=== PATIENT | female | born 1955 | race Caucasian/White ===

== ENCOUNTER → 2016-06-21 | Outpatient (CLI) | payer OTHER ==
[2016-06-21 11:14] LABS: HEMOGLOBIN 12.9 gm/dl (12.3-15.3); RED BLOOD COUNT 4.34 M/UL (4.00-5.10); WHITE BLOOD COUNT 5.5 K/UL (4.5-11.0)
[2016-06-21 11:42] LABS: BUN/CREATININE RATIO 10 (0-10)
== END ==
LOC: LAB 10:35
PROVIDERS: Internal Medicine Rheumatology
DX: M06.9 Rheumatoid arthritis, unspecified (principal); M70.62 Trochanteric bursitis, left hip; K21.9 Gastro-esophageal reflux disease without esophagitis; Z79.899 Other long term (current) drug therapy
CPT/HCPCS: 36415; 80053; 85025

== ENCOUNTER → 2016-07-30 | Outpatient (CLI) | payer OTHER ==
[2016-07-30 12:00] LABS: HEMOGLOBIN 13.6 gm/dl (12.3-15.3); RED BLOOD COUNT 4.55 M/UL (4.00-5.10); WHITE BLOOD COUNT 5.6 K/UL (4.5-11.0)
[2016-07-30 12:21] LABS: BUN/CREATININE RATIO 13 (0-10)
== END ==
LOC: LAB 10:49
PROVIDERS: Internal Medicine Rheumatology
DX: M06.9 Rheumatoid arthritis, unspecified (principal); K21.9 Gastro-esophageal reflux disease without esophagitis; B02.9 Zoster without complications; Z79.899 Other long term (current) drug therapy
CPT/HCPCS: 36415; 80053; 85025

== ENCOUNTER 2020-03-21 13:08 | Emergency (ER) | payer OTHER ==
[~2020-03-21 13:08] MED LIST: ARAVA20 MG PO; CALCIUM600 MG PO; ELIQUIS2.5 MG PO; FAMOTIDINE20 MG PO; GABAPENTIN100 MG PO; HYDROXYCHLOROQ200 MG PO; INDERAL TAB 2020 MG PO; MULTIVITAMIN1 EACH PO; MULTIVITAMINS1 EAC1 PO; NORCO 10-325 T1 EACH PO; PERCOCET 10-321 EACH PO; PLAQUENIL 200200 MG PO; PROTONIX 40 MG40 M1 PO; SYNTHROID137 MCG PO; SYNTHROID150 MCG PO; SYNTHROID175 MCG PO; TIZANIDINE HCL2 MG PO; TIZANIDINE HCL4 MG PO; TRAMADOL HCL50 MG PO; VITAMIN B-121000 MCG PO; VITAMIN B12-FO1 EACH PO; VITAMIN D31000 UNI1 PO; ZANTAC 150 MG150 MG PO; ZYVOX600 MG PO
[2020-04-15] MEDS ORDERED: FAMOTIDINE20 MG PO (09:54)
[2020-04-15] MEDS ORDERED: LEFLUNOMIDE20 MG PO (09:54)
[2020-04-15] MEDS ORDERED: PROPRANOLOL HCL20 MG PO (09:55)
[2020-04-15] MEDS ORDERED: HYDROXYCHLOROQ200 MG PO (09:55)
[2020-04-15] MEDS ORDERED: GABAPENTIN100 MG PO (09:56)
[2020-04-15] MEDS ORDERED: SYNTHROID137 MCG PO (09:57)
[2020-04-15] MEDS ORDERED: SYNTHROID150 MCG PO (09:57)
== END 2020-03-21 19:00 | disposition home or self-care (01) ==
LOC: ER1 13:08
DX: T18.128A Food in esophagus causing other injury, initial encounter (principal); X58.XXXA Exposure to other specified factors, initial encounter; Z87.19 Personal history of other diseases of the digestive system; Z20.822 Contact with and (suspected) exposure to COVID-19; Z88.0 Allergy status to penicillin
CPT/HCPCS: 87635; 99284; J2250; J3010

== ENCOUNTER → 2020-04-15 | Day surgery (SDC) | payer OTHER ==
[~2020-04-15] MED LIST changes: +LEFLUNOMIDE20 MG PO; +PROPRANOLOL HCL20 MG PO
== END | disposition home or self-care (01) ==
LOC: OR 08:00
DX: K20.0 Eosinophilic esophagitis (principal); K44.9 Diaphragmatic hernia without obstruction or gangrene; K31.7 Polyp of stomach and duodenum; M06.9 Rheumatoid arthritis, unspecified; E03.9 Hypothyroidism, unspecified; E66.01 Morbid (severe) obesity due to excess calories; Z80.51 Family history of malignant neoplasm of kidney; Z79.899 Other long term (current) drug therapy; Z90.49 Acquired absence of other specified parts of digestive tract; Z68.41 Body mass index [BMI] 40.0-44.9, adult
CPT/HCPCS: J2704; J7040

== ENCOUNTER → 2020-12-16 | Outpatient (CLI) | payer OTHER | LOC: MAMO 07:52 | DX: Z12.31 Encounter for screening mammogram for malignant neoplasm of breast (principal) | CPT/HCPCS: 77063; 77067 ==